=== PATIENT | female | born 1945 | race Caucasian/White ===

== ENCOUNTER 2022-11-20 13:01 | Emergency (ER) | payer MEDICARE, SELFPAY ==
[2022-11-20 13:07] VITALS: BP 134/78; PULSE 88; RESP 18; TEMP 36.2; O2SAT 93; BMI 41.6
--- NOTE | 2022-11-20 13:42 | ED.GENADULT ---
HPI - General Adult General Date Seen: 11/20/22 Chief complaint: Weakness Stated complaint: poss dehydration Time Seen by Provider: 11/20/22 13:02 Source: patient and family Mode of arrival: ambulatory Limitations: no limitations History of Present Illness HPI narrative: Patient is a 76-year-old woman here with her daughter for evaluation of ongoing nausea and dizziness. She was seen initially at [facility] ER at the beginning of October, but her daughter says they were very dissatisfied with her care here so they came here shortly thereafter. She had an evaluation at [facility] including labs, CT of the head and CT angiogram of the head which were unremarkable. Here she was noted to be orthostatic, and had recently been discontinued off of her prednisone so her symptoms were felt possibly related to abrupt withdrawal of steroids. She was treated with stress dose hydrocortisone and started back on prednisone. According to her hospital notes, she improved significantly, did still have weakness and cognitive problems and so was discharged [facility] where she stayed for a couple of weeks. She has been back at her daughter's house for the past week. Her daughter says she never really got much better, she still most of the time feels nauseated and dizzy. She talks a lot at home about not feeling well. She has not had any fainting, she saw the sheet metal roofer as well as her grinder outside diameter and primary care doctor in the past week. Her grinder outside diameter has her tapering off of prednisone at a very slow rate and she is down to 3.5 mg daily. Her sheet metal roofer recommended increasing her metoprolol from 100 mg daily to 150 mg daily although they have not instituted that yet as the medicine just became available at the pharmacy yesterday evening. She does have a history of atrial fibrillation but rate generally seems to be controlled. Daughter says the sheet metal roofer thought she might feel better on the higher dose of metoprolol nonetheless. She has not had any vomiting, she has colitis and just had a Remicade infusion a couple of days ago. She always has bloody stools and this is stable. She does not have significant abdominal pain and has not had fevers. Had a UA done at her primary clinic in the past week which was negative, denies urinary symptoms. Symptoms of dizziness are not clearly orthostatic, she says that she feels this way most of the time, even when she is sitting still. She has live with her daughter for the past 4 years, her daughter says that it has been going fine until the past month, and since then they have been having significant we more trouble. Her daughter says she does not drink a lot even the patient says she does, and daughter is concerned that she might be dehydrated. Related Data Home Medications Medication Instructions Recorded Confirmed allopurinol 300 mg tablet 450 mg PO DAILY 10/24/22 10/24/22 amlodipine 5 mg tablet 5 mg PO DAILY 10/24/22 10/24/22 apixaban 5 mg tablet (Eliquis) 5 mg PO BID 10/24/22 10/24/22 atorvastatin 10 mg tablet 10 mg PO DAILY 10/24/22 10/24/22 furosemide 20 mg tablet 20 mg PO DAILY 10/24/22 10/24/22 metoprolol tartrate 50 mg tablet 50 mg PO BID 10/24/22 10/24/22 (Lopressor) sulfasalazine 500 mg tablet 1 g PO Q12H 10/24/22 10/24/22 Previous Rx's Medication Instructions Recorded prednisone 20 mg tablet 20 mg PO DAILYWM 14 days #14 tabs 10/27/22 Allergies Allergy/AdvReac Type Severity Reaction Status Date / Time No Known Drug Allergies Allergy Verified 11/20/22 13:10 Review of Systems Status of ROS: Reports: 10 or more systems reviewed and unremarkable except as noted in History and below [facility] Medical History Health care directive on file ?Z78.9 - Other specified health status (ICD-10) Gout ?M10.9 - Gout, unspecified (ICD-10) Anxiety ?F41.9 - Anxiety disorder, unspecified (ICD-10) Physical deconditioning ?R53.81 - Other malaise (ICD-10) Obesity ?E66.9 - Obesity, unspecified (ICD-10) Hyperlipidemia ?E78.5 - Hyperlipidemia, unspecified (ICD-10) Atrial fibrillation ?I48.91 - Unspecified atrial fibrillation (ICD-10) Heart failure ?I50.9 - Heart failure, unspecified (ICD-10) Diabetes mellitus ?E11.9 - Type 2 diabetes mellitus without complications (ICD-10) Lower extremity edema ?R60.0 - Localized edema (ICD-10) Ulcerative colitis ?K51.90 - Ulcerative colitis, unspecified, without complications (ICD-10) Surgical History Hx of tonsillectomy ?Z90.89 - Acquired absence of other organs (ICD-10) H/O hernia repair ?Z98.890 - Other specified postprocedural states (ICD-10) ?Z87.19 - Personal history of other diseases of the digestive system (ICD-10) History of bilateral knee arthroplasty ?Z96.653 - Presence of artificial knee joint, bilateral (ICD-10) H/O abdominal hysterectomy ?Z90.710 - Acquired absence of both cervix and uterus (ICD-10) S/P colostomy takedown ?Z98.890 - Other specified postprocedural states (ICD-10) History of partial colectomy ?Z90.49 - Acquired absence of other specified parts of digestive tract (ICD-10) Social History Narrative: . She lives with her daughter. Her daughter's primary caregiver and sets up her medications for her. She normally walks with a walker. She tells me she still able to do this but is slower with more fatigue and weakness than a few days ago. She is a former smoker. She does not drink alcohol. She gets medical care through [facility] and [facility]. What is your current living situation?: I presently have a place to live Problems where you live: no known problems In the past 12 months, utilities in danger of being shut off: no In the past 12 mos, have been you worried that your food would run out before you had money to buy more?: never true In the past 12 mos, the food you bought just didn't last and you didn't have money to buy more?: never true Highest level of school completed/degree received: 11th grade Smoking Status: Former smoker Do you use any of these nicotine containing products: None Second hand tobacco smoke exposure: No How often do you have a drink containing alcohol: never How often do you have six or more drinks on one occasion: Never AUDIT-C Alcohol total score: 0 Non-prescribed substance use: denies use Caffeine: No How often does anyone, including family, friends and others, physically hurt you: never How often does anyone, including family, friends and others, insult or talk down to you: never How often does anyone, including family, friends and others, threaten you with harm: never How often does anyone, including family, friends and others, scream or curse at you: never service: No Exam Narrative: Exam Narrative: Vital signs as noted above. In general, an alert, nontoxic elderly woman. Head: Normocephalic, atraumatic. Eyes: Pupils are equal reactive. Extraocular movements are full. Conjunctivae are normal. ENT: Mucous membranes are moist. Throat is normal. Neck: Supple without lymphadenopathy. Heart: Regular rate and rhythm. No murmur or rub. Lungs: Clear bilaterally. No increased work of breathing, crackles or wheezes. Abdomen: Soft and nontender. No organomegaly. Extremities: Well perfused. No edema. No calf tenderness. Pulses intact. Neurologic: Patient is alert and oriented to person and place. Speech is fluent. Face is symmetric. Moves all extremities equally. Affect: Normal. Skin: Warm and dry. Well perfused. Const: Vital Signs, click to edit/add: Vital Signs - 24 hr 11/20/22 13:07 11/20/22 14:06 11/20/22 15:49 Temperature 97.1 F L Pulse Rate [Right Pulse Oximeter] 88 91 Pulse Rate [orthos tatic lying Left B rachial] 87 Pulse Rate [orthos tatic sitting Brac hial] 88 Pulse Rate [orthos tatic standing Lef t Brachial] 91 Respiratory Rate 18 18 Blood Pressure [Ri ght Upper Arm] 134/78 153/93 H Blood Pressure [or thostatic lying Le ft Radial Artery] 138/83 Blood Pressure [or thostatic sitting Left Radial Artery ] 148/83 H Blood Pressure [or thostatic standing Left Radial Arter y] 142/84 H Pulse Oximetry 93 97 Oxygen Delivery Me thod Room Air Room Air Documenting provider has reviewed patient's vital signs: yes Course Course Hospital Course: I have reviewed her records, she had a chest x-ray and CT the abdomen and pelvis on October 24. CT of the head was done at [facility] and was reportedly negative. Will go ahead and recheck labs today, but discussed with her daughter that I most likely will not have a solution to this problem. Labs are notable for mild elevations of LFTs with an ALT of 117 an AST of 73. Alk-phos is very minimally elevated at 163 but bilirubin is normal. She does not have abdominal pain suggestive of biliary colic or cholecystitis, but I did elect to do right upper quadrant ultrasound just to make sure that there was no evidence of more of a smoldering cholecystitis. Right upper quadrant ultrasound is pretty unremarkable. She has gallstones/sludge but wall thickness is normal and common bile duct is normal. She does not have any tenderness over the gallbladder, sonographic Martínez's is negative. She does have somewhat of a coarse hepatic echotexture, nonspecific. Her white blood cell count is normal at 6.6, hemoglobin 11.8. CRP was minimally elevated at 1.2 and sed rate was minimally elevated at 22. Her electrolytes were notable for a sodium of 129, potassium is normal. BUN and creatinine are normal. Lipase was 109. TSH was normal. Urinalysis today shows 5-10 white blood cells but moderate squames and I would recommend awaiting culture. Point of care troponin was 0. Her EKG shows atrial fibrillation which is chronic. Rate is controlled. She has fairly generous T-waves relative to her QRS complexes, but looking back at her previous EKG this does not appear to be a new finding. Given that she has had persistent symptoms for a month, troponin is negative I do not think her symptoms are likely related to cardiac ischemia. I talked with her daughter as well as the patient about options. After admission if she felt that at this time she would just need more care and we should pursue custodial placement. Patient had a Remicade injection a couple of days ago, she would like to wait a few days and see how she feels after that. Her daughter seems okay with that. Did discuss that she could also talk with primary care about getting more help in terms of home health. Return at any time for acute worsening, otherwise would recommend primary care follow-up in the next week or so for recheck of symptoms and consideration for recheck of her LFTs. Vital Signs Vital signs: Initial Vital Signs Temperature 97.1 F L 11/20/22 13:07 Temperature Source Temporal Artery Scan 11/20/22 13:07 Pulse Rate 88 11/20/22 13:07 Pulse Rhythm Regular 11/20/22 13:07 Pulse Strength 3+ Normal 11/20/22 13:07 Respiratory Rate 18 11/20/22 13:07 Blood Pressure 134/78 11/20/22 13:07 Blood Pressure Mean 96 11/20/22 13:07 Blood Pressure Position Supine 11/20/22 13:07 Pulse Oximetry 93 11/20/22 13:07 Oxygen Delivery Method Room Air 11/20/22 13:07 Vital Signs Temperature 97.1 F L 11/20/22 13:07 Pulse Rate 88 11/20/22 13:07 Respiratory Rate 18 11/20/22 13:07 Blood Pressure 134/78 11/20/22 13:07 Pulse Oximetry 93 11/20/22 13:07 Oxygen Delivery Method Room Air 11/20/22 13:07 Temperature 97.1 F L 11/20/22 13:07 Pulse Rate 91 11/20/22 15:49 Respiratory Rate 18 11/20/22 15:49 Blood Pressure 153/93 H 11/20/22 15:49 Pulse Oximetry 97 11/20/22 15:49 Oxygen Delivery Method Room Air 11/20/22 15:49 Medical Decision Making Lab Data Labs: Lab Results 11/20/22 11/20/22 Range/Units 13:20 13:39 WBC 6.60 (4.50-11.00) K/uL RBC 4.62 (4.00-5.20) m/uL Hgb 11.8 L (12.0-16.0) gm/dL Hct 39.1 (33.0-51.0) % MCV 85 (80-100) fL MCH 26 (26-34) pg MCHC 30 L (32-36) gm/dL RDW Coeff of Jessica 17.8 H (11.5-15.5) % Plt Count 260 (140-440) K/uL Neut % (Auto) 56.7 (42.0-72.0) % Lymph % (Auto) 36.5 (20-44) % [place] % (Auto) 5.5 (0.0-11.0) % Eos % (Auto) 0.5 (0.0-7.0) % Baso % (Auto) 0.3 (0.0-3.0) % Neut # (Auto) 3.75 (1.7-7.0) K/uL Lymph # (Auto) 2.41 (0.90-2.90) K/uL [place] # (Auto) 0.40 (0.00-0.90) K/UL Eos # (Auto) 0.03 (0.00-0.50) K/uL Baso # (Auto) 0.02 (0.00-0.30) K/uL ESR 22 H (2-20) mm/hr Sodium 129 L (135-149) mmol/L Potassium 3.9 (3.6-5.1) mmol/L Chloride 90 L (96-114) mmol/L Carbon Dioxide 34 H (20-32) mmol/L BUN 26 (7-30) mg/dL Creatinine 0.9 (0.5-1.5) mg/dL Estimated Creat Clear 44.41 Estimated GFR 67 ml/min Glucose 245 H (60-115) mg/dL Hemoglobin A1c 6.93 H (0-5.6) % Lactate 2.0 H (0.5-1.9) mmol/L Calcium 8.7 (8.4-10.6) mg/dL Total Bilirubin 0.3 (0.1-1.5) mg/dL Direct Bilirubin (0.0-0.5) mg/dL AST 73 H (12-35) U/L ALT 117 H (4-35) U/L Alkaline Phosphatase 163 H (40-150) U/L C-Reactive Protein 1.2 H (0.5-1.0) mg/dL Total Protein 7.2 (6.0-8.3) g/dL Albumin 2.0 L (3.3-5.0) g/dL Lipase 109 (23-300) U/L TSH 2.030 (0.270-4.200) uIU/mL Urine Color Yellow (Yellow) Urine Appearance Clear (Clear) Urine pH 6.5 (5.0-8.5) Ur Specific [place] 1.010 (1.000-1.030) Urine Protein Negative (Negative) Urine Glucose (UA) Negative (Negative) Urine Ketones Negative (Negative) Urine Blood Trace-intact A (Negative) Urine Nitrite Negative (Negative) Urine Bilirubin Negative (Negative) Urine Urobilinogen 0.2 (0.2-1.0) Ur Leukocyte Esterase 3+ A (Negative) Urine RBC 0-2 (0-2) Urine WBC 5-10 A (0-5) Ur Squamous Epith Cells Moderate A (None-Few) Urine Bacteria Few A (None) POC Troponin I 0.00 L (0.01-0.04) ng/ml Discharge Plan Discharge Clinical Impression: Nausea Patient Disposition: Home w/ Parent or Adult Condition: Improved Instructions: Weakness (ED) Additional Instructions: Use Zofran if needed for nausea. Primary care follow-up for recheck in the next week. Return at any time for acute changes such as significant abdominal pain, fevers, vomiting despite medication, fainting or other significant changes. Prescriptions: No Action atorvastatin 10 mg tablet 10 mg PO DAILY allopurinol 300 mg tablet 450 mg PO DAILY furosemide 20 mg tablet 20 mg PO DAILY Eliquis 5 mg tablet 5 mg PO BID sulfasalazine 500 mg tablet 1 g PO Q12H Rx Instructions: give with food (meal/snack) metoprolol tartrate [Lopressor] 50 mg tablet 50 mg PO BID amlodipine 5 mg tablet 5 mg PO DAILY prednisone 20 mg Tablet 20 mg PO DAILYWM 14 Days Qty: 14 1RF Rx Instructions: Stress dosing needed in case of crisis. Follow Up/Referrals: Provider,Not a Local [Primary Care Provider] - Stand Alone Forms: [employer]th Info Instructions
[2022-11-20 13:52] LABS: Basophils Absolute Auto 0.02 K/uL (0.00-0.30); Basophils Percent Auto 0.3 % (0.0-3.0); Eosinophils Absolute Auto 0.03 K/uL (0.00-0.50); Eosinophils Percent Auto 0.5 % (0.0-7.0); Hematocrit 39.1 % (33.0-51.0); Hemoglobin* 11.8 gm/dL (12.0-16.0); Immature Granulocytes Abs Auto 0.03 K/uL (0.00-0.30); Immature Granulocytes Pct Auto 0.5 %; Lymphocytes Absolute Auto 2.41 K/uL (0.90-2.90); Lymphocytes Percent Auto 36.5 % (20-44); Mean Corpuscular HGB Conc 30 gm/dL (32-36); Mean Corpuscular Hemoglobin 26 pg (26-34); Mean Corpuscular Volume 85 fL (80-100); Monocytes Percent Auto 5.5 % (0.0-11.0); Neutrophils Absolute Auto 3.75 K/uL (1.7-7.0); Neutrophils Percent Auto 56.7 % (42.0-72.0); Platelet Count* 260 K/uL (140-440); RDW Coefficient of Variation % 17.8 % (11.5-15.5); Red Blood Count 4.62 m/uL (4.00-5.20)
[2022-11-20 13:54] LABS: Slide Review Reflex No
[2022-11-20] MEDS: 0.9 % SODIUM CHLORIDE 500 ML 500 ML IV (13:54)
[2022-11-20] MEDS: ONDANSETRON 2 MG/ML inj 4 MG IVP (13:54)
[2022-11-20 13:55] LABS: Appearance Urine Clear (Clear); Bilirubin Urine Negative (Negative); Blood Urine Trace-intact (Negative); Color Urine Yellow (Yellow); Glucose Urine Negative (Negative); Ketones Urine Negative (Negative); Leukocyte Esterase Urine 3+ (Negative); Nitrite Urine Negative (Negative); Protein Urine Negative (Negative); Urobilinogen Urine 0.2 (0.2-1.0); pH Urine 6.5 (5.0-8.5)
[2022-11-20 14:05] LABS: Chloride* 90 mmol/L (96-114)
[2022-11-20 14:06] VITALS: BP 138/83; BP 142/84; BP 148/83; PULSE 87; PULSE 88; PULSE 91
[2022-11-20 14:06] LABS: Potassium* 3.9 mmol/L (3.6-5.1); Sodium* 129 mmol/L (135-149)
[2022-11-20 14:08] LABS: Creatinine* 0.9 mg/dL (0.5-1.5); Est. Creatinine Clearance* 44.41; Estimated Glomerular Filt Rate 67 ml/min
[2022-11-20 14:09] LABS: Alanine Aminotransferase* 117 U/L (4-35); Alkaline Phosphatase* 163 U/L (40-150); Aspartate Amino Transferase* 73 U/L (12-35); Bilirubin Total* 0.3 mg/dL (0.1-1.5); Blood Urea Nitrogen* 26 mg/dL (7-30); Calcium* 8.7 mg/dL (8.4-10.6); Carbon Dioxide* 34 mmol/L (20-32); Glucose* 245 mg/dL (60-115); Lipase* 109 U/L (23-300); Total Protein* 7.2 g/dL (6.0-8.3)
[2022-11-20 14:11] LABS: Bacteria Urine Few; RBC Urine 0-2 (0-2); Squamous Epithelial Cell Urine Moderate (None-Few)
[2022-11-20 14:12] LABS: C Reactive Protein* 1.2 mg/dL (0.5-1.0)
[2022-11-20 14:37] LABS: Erythrocyte SedimentationRate* 22 mm/hr (2-20)
--- NOTE | 2022-11-20 15:39 | CRLHL7_ITS ---
For Patients: As a result of the Cures Act, medical imaging exams and procedure reports are released immediately into your electronic medical record. You may view this report before your referring provider. If you have questions, please contact your health care provider. INDICATION: Nausea. Elevated liver function tests. TECHNIQUE: Right upper quadrant ultrasound. COMPARISON : Correlation is made with an abdominal pelvic CT October 24, 2022. FINDINGS: Contracted gallbladder likely due to a nonfasting state. There is minimal sludge/sand like stones in the gallbladder. The gallbladder wall measures 2 mm. The common bile duct 4 mm. No pericholecystic fluid. No sonographic Martínez`s sign. Coarsened hepatic echotexture. This may reflect an intrinsic hepatic parenchymal disease. Tiny echogenic focus right hepatic lobe may reflect a tiny hemangioma. The visualized portions of the pancreas are unremarkable. The right kidney is negative for obstruction. It measures 11.3 x 5.2 x 5.6 cm. The visualized proximal aorta and proximal IVC are unremarkable. IMPRESSION: 1. Cholelithiasis without acute cholecystitis. 2. Coarsened hepatic echotexture. This is nonspecific but may reflect an intrinsic hepatic parenchymal process. 3. Tiny echogenic focus right hepatic lobe likely a tiny cavernous hemangioma. Dictated by Hood Ogden MD @ 11/20/2022 5:48:03 PM (Electronically Signed)
[2022-11-20 15:49] VITALS: BP 153/93; PULSE 91; RESP 18; O2SAT 97
[2022-11-20 15:58] LABS: Hemoglobin A1C* 6.93 % (0-5.6)
== END 2022-11-20 17:18 | disposition home or self-care (01) ==
PROVIDERS: Emergency Provider Emergency Medicine
DX: R11.0 Nausea (principal)
CPT/HCPCS: 36415; 76705; 80048; 80076; 81001; 83036; 83605; 83690; 84443; 84484; 85025; 85651; 86140; 87086; 87186; 93005; 96374; 99284; J2405; J7120

== ENCOUNTER 2023-08-12 12:33 | Emergency (ER) | payer MEDICARE, SELFPAY ==
[2023-08-12 12:42] VITALS: BP 128/72; PULSE 85; RESP 20; TEMP 36.6; O2SAT 97; BMI 44.4
--- NOTE | 2023-08-12 12:55 | XR_ITS ---
Patient: YANETH ANTHONY Facility:?[facility] Patient ID:?[id number] Site Patient ID:?[id number]. Site :?[id number] Study:?XRay-Chest 2 VIEW-08/12/2023 2:12:50 PM Ordering Physician:?DR. HERRERA Final Report: INDICATION: COUGH TECHNIQUE: Chest 2 views. COMPARISON: None. IMPRESSION: Cardiovascular and mediastinum: Marked cardiomegaly. Lungs and pleural spaces: Patchy right basilar opacity may represent atelectasis or developing consolidation/pneumonia. No sign of pleural effusion. No pneumothorax. Bones and soft tissues: No significant findings. Dictated by Ivan Lee MD @ 08/12/2023 2:25:06 PM Signed by:?Ivan Lee MD @08/12/2023 2:25:06 PM (Electronic Signature)
--- NOTE | 2023-08-12 12:58 | ED.GENADULT ---
HPI - General Adult General Date Seen: 08/12/23 Chief complaint: Shortness of Breath/Dyspnea Stated complaint: Fluid in lungs Time Seen by Provider: 08/12/23 12:35 Source: patient and family Mode of arrival: ambulatory Limitations: no limitations History of Present Illness HPI narrative: Patient is a 77-year-old woman here with her daughter. Daughter provides essentially all the history. Apparently she was at [facility] today for an infusion related to her chronic colitis, but they said her lungs were ?too crackly and they did not do the infusion. Her daughter says she has had a cough for a couple of weeks now, has had some dyspnea on exertion. No chest pain, fevers. She has nebs and inhalers at home but does not like to use them because she says they make her cough more. She does have a history of heart failure according to the daughter, she is on Lasix, daughter says she is on 2 other water pills although I do not see those on her list. Daughter says she feels like she is getting more forgetful and sometimes forgets to take her medications. She does live with her daughter. She does not keep track of her weight, has not noted increased swelling in her legs. Daughter is worried about fluid on her lungs. Patient says she feels like she has a cold. Related Data Home Medications Medication Instructions Recorded Confirmed allopurinol 300 mg tablet 450 mg PO DAILY 10/24/22 10/24/22 amlodipine 5 mg tablet 5 mg PO DAILY 10/24/22 10/24/22 apixaban 5 mg tablet (Eliquis) 5 mg PO BID 10/24/22 10/24/22 atorvastatin 10 mg tablet 10 mg PO DAILY 10/24/22 10/24/22 furosemide 20 mg tablet 20 mg PO DAILY 10/24/22 10/24/22 metoprolol tartrate 50 mg tablet 50 mg PO BID 10/24/22 10/24/22 (Lopressor) sulfasalazine 500 mg tablet 1 g PO Q12H 10/24/22 10/24/22 Previous Rx's Medication Instructions Recorded prednisone 20 mg tablet 20 mg PO DAILYWM 14 days #14 tabs 10/27/22 Allergies Allergy/AdvReac Type Severity Reaction Status Date / Time No Known Drug Allergies Allergy Verified 11/20/22 13:10 Review of Systems Status of ROS: Reports: 6 or more systems reviewed and unremarkable except as noted in History and below [facility] Medical History Health care directive on file ?Z78.9 - Other specified health status (ICD-10) Gout ?M10.9 - Gout, unspecified (ICD-10) Anxiety ?F41.9 - Anxiety disorder, unspecified (ICD-10) Physical deconditioning ?R53.81 - Other malaise (ICD-10) Obesity ?E66.9 - Obesity, unspecified (ICD-10) Hyperlipidemia ?E78.5 - Hyperlipidemia, unspecified (ICD-10) Atrial fibrillation ?I48.91 - Unspecified atrial fibrillation (ICD-10) Heart failure ?I50.9 - Heart failure, unspecified (ICD-10) Diabetes mellitus ?E11.9 - Type 2 diabetes mellitus without complications (ICD-10) Lower extremity edema ?R60.0 - Localized edema (ICD-10) Ulcerative colitis ?K51.90 - Ulcerative colitis, unspecified, without complications (ICD-10) Surgical History Hx of tonsillectomy ?Z90.89 - Acquired absence of other organs (ICD-10) H/O hernia repair ?Z98.890 - Other specified postprocedural states (ICD-10) ?Z87.19 - Personal history of other diseases of the digestive system (ICD-10) History of bilateral knee arthroplasty ?Z96.653 - Presence of artificial knee joint, bilateral (ICD-10) H/O abdominal hysterectomy ?Z90.710 - Acquired absence of both cervix and uterus (ICD-10) S/P colostomy takedown ?Z98.890 - Other specified postprocedural states (ICD-10) History of partial colectomy ?Z90.49 - Acquired absence of other specified parts of digestive tract (ICD-10) Social History Narrative: . She lives with her daughter. Her daughter's primary caregiver and sets up her medications for her. She normally walks with a walker. She tells me she still able to do this but is slower with more fatigue and weakness than a few days ago. She is a former smoker. She does not drink alcohol. She gets medical care through [facility] and [facility]. What is your current living situation?: I presently have a place to live Problems where you live: no known problems In the past 12 months, utilities in danger of being shut off: no In past 12 months, lack of transportation kept you from medical appts, meetings, work, or getting things needed for daily living: no In the past 12 mos, have been you worried that your food would run out before you had money to buy more?: never true In the past 12 mos, the food you bought just didn't last and you didn't have money to buy more?: never true Highest level of school completed/degree received: 11th grade Smoking Status: Former smoker Do you use any of these nicotine containing products: None Second hand tobacco smoke exposure: No How often do you have a drink containing alcohol: never How often do you have six or more drinks on one occasion: Never AUDIT-C Alcohol total score: 0 Non-prescribed substance use: denies use Caffeine: No How often does anyone, including family, friends and others, physically hurt you: never How often does anyone, including family, friends and others, insult or talk down to you: never How often does anyone, including family, friends and others, threaten you with harm: never How often does anyone, including family, friends and others, scream or curse at you: never service: No Exam Narrative: Exam Narrative: Vital signs as noted above. In general, an alert, well-appearing patient. Breathing easily. She is overweight. She walks with a cane. Head: Normocephalic, atraumatic. Eyes: Pupils are equal reactive. Extraocular movements are full. Conjunctivae are normal. ENT: Mucous membranes are moist. Neck: Supple without lymphadenopathy. Heart: Regular rate and rhythm. Lungs: Diffuse wheezes, scattered rhonchi. No fine crackles. Abdomen: Soft and nontender. No organomegaly. Extremities: Well perfused. No significant lower extremity edema. No calf tenderness. Radial pulses intact. Neurologic: Patient is alert and oriented to person and place. Speech is fluent. Face is symmetric. Moves all extremities equally. Affect: Normal. Skin: Warm and dry. Well perfused. Const: Vital Signs, click to edit/add: Vital Signs - 24 hr 08/12/23 12:42 Temperature 97.9 F Pulse Rate [Pulse Oximeter] 85 Respiratory Rate 20 Blood Pressure [Ri ght Upper Arm] 128/72 Pulse Oximetry 97 Oxygen Delivery Me thod Room Air Documenting provider has reviewed patient's vital signs: yes Course Course ED Course: Patient presents with a couple of weeks of cough, some dyspnea on exertion, afebrile, normal O2 sats. Exam is more suggestive of bronchospasm than pulmonary edema, but will check some labs, x-ray, she is willing to do a neb here so will see if that improves her lung exam. She has a history of atrial fibrillation, she is chronically anticoagulated on Eliquis. No other known heart disease, we do not have an echo in our system and daughter is unaware of previous echo. Chest x-ray by my review shows significant cardiomegaly, I do not see obvious consolidation or significant pulmonary edema. Labs show a white blood cell count of 11.4, hemoglobin of 13.1, normal platelets. No significant left shift. D-dimer was elevated 1.4. Metabolic panel was normal aside from a mildly elevated BUN of 38, creatinine was 1. Blood sugar elevated at 295, she does have a history of diabetes. Point of care troponin was 0.01. Urinalysis was done at daughter's request because she feels like her mom's memory is not been is good she want to rule out urinary tract infection. No urinary symptoms. 0-2 red cells, 0-2 white cells, many squames. COVID, influenza and RSV are negative. CT scan was done given the elevated D-dimer and perceived increased shortness of breath with exertion. By my review, there is no evidence of pulmonary embolism, I do not see consolidation, final radiology read as follows: Findings: The thoracic inlet and thyroid gland are unremarkable. The thoracic aorta is nonaneurysmal. There is no central filling defect to suggest pulmonary embolism. There is no mediastinal, hilar or axillary adenopathy. There is mild central bronchial thickening. There is minimal basilar atelectasis and parenchymal scar with mild biapical pleural thickening. There is no dense consolidation, effusion or pneumothorax. There is no evidence of pulmonary mass or suspicious pulmonary nodule. The partially visualized upper abdominal viscera are within normal limits. The thoracic vertebral body heights are grossly maintained with minimal endplate Schmorl`s defects. There is no significant spondylolisthesis or displaced fracture. Impression: Mild central bronchial thickening without dense consolidation. No evidence of pulmonary embolus. She feels improved after DuoNeb here, she says she is willing to use her nebs at home if that is what I say she should do. She is on chronic prednisone 10 mg daily, will have her increase that to 40 daily for 5 days and then drop back down. She should use her prescribed nebs every 4 hours as needed. For worsening shortness of breath, fevers, chest pain or other significant changes return at any time for re-evaluation. Otherwise, recheck with primary care next week if not improving. Vital Signs Vital signs: Initial Vital Signs Temperature 97.9 F 08/12/23 12:42 Temperature Source Temporal Artery Scan 08/12/23 12:42 Pulse Rate 85 08/12/23 12:42 Respiratory Rate 20 08/12/23 12:42 Blood Pressure 128/72 08/12/23 12:42 Blood Pressure Mean 90 08/12/23 12:42 Pulse Oximetry 97 08/12/23 12:42 Oxygen Delivery Method Room Air 08/12/23 12:42 Vital Signs Temperature 97.9 F 08/12/23 12:42 Pulse Rate 85 08/12/23 12:42 Respiratory Rate 20 08/12/23 12:42 Blood Pressure 128/72 08/12/23 12:42 Pulse Oximetry 97 08/12/23 12:42 Oxygen Delivery Method Room Air 08/12/23 12:42 Temperature 97.9 F 08/12/23 12:42 Pulse Rate 85 08/12/23 12:42 Respiratory Rate 20 08/12/23 12:42 Blood Pressure 128/72 08/12/23 12:42 Pulse Oximetry 97 08/12/23 12:42 Oxygen Delivery Method Room Air 08/12/23 12:42 Medical Decision Making Lab Data Labs: Lab Results 08/12/23 08/12/23 08/12/23 Range/Units 12:57 13:17 14:32 WBC 11.38 H (4.50-11.00) K/uL RBC 4.59 (4.00-5.20) m/uL Hgb 13.1 (12.0-16.0) gm/dL Hct 42.8 (33.0-51.0) % MCV 93 (80-100) fL MCH 29 (26-34) pg MCHC 31 L (32-36) gm/dL RDW Coeff of Jessica 15.6 H (11.5-15.5) % Plt Count 219 (140-440) K/uL Neut % (Auto) 62.8 (42.0-72.0) % Lymph % (Auto) 31.2 (20-44) % [place] % (Auto) 4.3 (0.0-11.0) % Eos % (Auto) 0.5 (0.0-7.0) % Baso % (Auto) 0.4 (0.0-3.0) % Neut # (Auto) 7.10 H (1.7-7.0) K/uL Lymph # (Auto) 3.60 H (0.90-2.90) K/uL [place] # (Auto) 0.50 (0.00-0.90) K/UL Eos # (Auto) 0.10 (0.00-0.50) K/uL Baso # (Auto) 0.00 (0.00-0.30) K/uL Abs Immat Gran (auto) 0.10 (0.00-0.30) K/uL Imm/Tot Granulo (auto) 0.8 % D-Dimer Quant (PE/DVT) 1.41 H (0.00-0.50) ug/ml Sodium 135 (135-149) mmol/L Potassium 4.0 (3.6-5.1) mmol/L Chloride 96 (96-114) mmol/L Carbon Dioxide 32 (20-32) mmol/L Anion Gap 7 (7-15) mEq/L BUN 38 H (7-30) mg/dL Creatinine 1.0 (0.5-1.5) mg/dL Estimated Creat Clear 38.44 Estimated GFR 59 ml/min Glucose 295 H (60-115) mg/dL Calcium 8.7 (8.4-10.6) mg/dL C-Reactive Protein 0.8 (0.5-1.0) mg/dL NT-Pro-B Natriuret Pep 1450 pg/mL Urine Color Yellow (Yellow) Urine Appearance Clear (Clear) Urine pH 6.0 (5.0-8.5) Ur Specific [place] 1.015 (1.000-1.030) Urine Protein Negative (Negative) Urine Glucose (UA) Negative (Negative) Urine Ketones Negative (Negative) Urine Blood Trace-intact A (Negative) Urine Nitrite Negative (Negative) Urine Bilirubin Negative (Negative) Urine Urobilinogen 0.2 (0.2-1.0) Ur Leukocyte Esterase Negative (Negative) Urine RBC 0-2 (0-2) Urine WBC 0-2 (0-5) Ur Squamous Epith Cells Many A (None-Few) Urine Bacteria None (None) SARS-CoV-2 (PCR) Negative SARS-CoV-2 (Negative) Influenza Type A (PCR) Negative PCR FLU A (Negative) Influenza Type B (PCR) Negative PCR FLU B (Negative) RSV (PCR) Negative PCR RSV (Negative) POC Troponin I 0.01 (0.01-0.04) ng/ml Discharge Plan Discharge Clinical Impression: Bronchitis Patient Disposition: Home w/ Parent or Adult Condition: Improved Instructions: Acute Bronchitis (ED) Additional Instructions: Would recommend you increase prednisone to 40 mg daily for 5 days, you can then return to your 10 mg daily dose. Use your nebulizer as needed for wheezing, shortness of breath, cough, every 4 hours as needed. For worsening shortness of breath, new symptoms such as leg swelling, chest pain, fevers, return any time to the ER. Prescriptions: No Action atorvastatin 10 mg tablet 10 mg PO DAILY allopurinol 300 mg tablet 450 mg PO DAILY furosemide 20 mg tablet 20 mg PO DAILY Eliquis 5 mg tablet 5 mg PO BID sulfasalazine 500 mg tablet 1 g PO Q12H Rx Instructions: give with food (meal/snack) metoprolol tartrate [Lopressor] 50 mg tablet 50 mg PO BID amlodipine 5 mg tablet 5 mg PO DAILY prednisone 20 mg Tablet 20 mg PO DAILYWM 14 Days Qty: 14 1RF Rx Instructions: Stress dosing needed in case of crisis. Follow Up/Referrals: Provider,Not a Local [Referring] - Stand Alone Forms: [employer] Info Instructions
[2023-08-12] MEDS: IPRAT-ALBUT 0.5-2.5 MG/3 ML NEB 1 NEB IH (13:00)
[2023-08-12 13:25] LABS: Basophils Percent Auto 0.4 % (0.0-3.0); Eosinophils Percent Auto 0.5 % (0.0-7.0); Hematocrit 42.8 % (33.0-51.0); Hemoglobin* 13.1 gm/dL (12.0-16.0); Immature Granulocytes Pct Auto 0.8 %; Lymphocytes Percent Auto 31.2 % (20-44); Mean Corpuscular HGB Conc 31 gm/dL (32-36); Mean Corpuscular Hemoglobin 29 pg (26-34); Mean Corpuscular Volume 93 fL (80-100); Monocytes Percent Auto 4.3 % (0.0-11.0); Neutrophils Percent Auto 62.8 % (42.0-72.0); Platelet Count* 219 K/uL (140-440); RDW Coefficient of Variation % 15.6 % (11.5-15.5); Red Blood Count 4.59 m/uL (4.00-5.20); White Blood Count* 11.38 K/uL (4.50-11.00)
[2023-08-12 13:29] LABS: Slide Review Reflex No
[2023-08-12 13:30] LABS: Troponin, Point-of-Care* 0.01 ng/ml (0.01-0.04)
[2023-08-12 13:45] LABS: Chloride* 96 mmol/L (96-114); Sodium* 135 mmol/L (135-149)
[2023-08-12 13:48] LABS: Est. Creatinine Clearance* 38.44; Estimated Glomerular Filt Rate 59 ml/min
[2023-08-12 13:49] LABS: Anion Gap 7 mEq/L (7-15); Blood Urea Nitrogen* 38 mg/dL (7-30); Calcium* 8.7 mg/dL (8.4-10.6); Carbon Dioxide* 32 mmol/L (20-32); Glucose* 295 mg/dL (60-115)
[2023-08-12 13:51] LABS: D Dimer Quantitative* 1.41 ug/ml (0.00-0.50)
[2023-08-12 13:52] LABS: C Reactive Protein* 0.8 mg/dL (0.5-1.0)
[2023-08-12 13:59] LABS: NT Pro B Type NatriureticPept* 1450 pg/mL
[2023-08-12 14:12] LABS: PCR FLU A Negative PCR FLU A (Negative); PCR FLU B Negative PCR FLU B (Negative); PCR RSV Negative PCR RSV (Negative); SARS PCR* Negative SARS-CoV-2 (Negative)
--- NOTE | 2023-08-12 14:16 | CT_ITS ---
Patient: YANETH ANTHONY Facility:?[facility] Patient ID:?[id number] Site Patient ID:?[id number]. Site :?[id number] Study:?CT-Chest PE 95CC ISOVUE 370-08/12/2023 3:00:13 PM Ordering Physician:POPEYE Final Report: Indication: Shortness of breath, elevated D-dimer Technique: Volumetric multidetector CT images of the chest were obtained after the administration of IV contrast. 95 cc Isovue 370 low osmolar intravenous contrast Comparison: None available. Findings: The thoracic inlet and thyroid gland are unremarkable. The thoracic aorta is nonaneurysmal. There is no central filling defect to suggest pulmonary embolism. There is no mediastinal, hilar or axillary adenopathy. There is mild central bronchial thickening. There is minimal basilar atelectasis and parenchymal scar with mild biapical pleural thickening. There is no dense consolidation, effusion or pneumothorax. There is no evidence of pulmonary mass or suspicious pulmonary nodule. The partially visualized upper abdominal viscera are within normal limits. The thoracic vertebral body heights are grossly maintained with minimal endplate Schmorl`s defects. There is no significant spondylolisthesis or displaced fracture. Impression: Mild central bronchial thickening without dense consolidation. No evidence of pulmonary embolus. Please note that all CT scans at this facility use dose modulation, iterative reconstruction, and/or weight-based dosing when appropriate to reduce radiation dose to as low as reasonably achievable. Dictated by Hermes Carpio MD @ 08/12/2023 3:23:57 PM Signed by:?Hermes Carpio MD @08/12/2023 3:23:57 PM (Electronic Signature)
[2023-08-12 14:42] LABS: Appearance Urine Clear (Clear); Bilirubin Urine Negative (Negative); Blood Urine Trace-intact (Negative); Color Urine Yellow (Yellow); Glucose Urine Negative (Negative); Ketones Urine Negative (Negative); Leukocyte Esterase Urine Negative (Negative); Nitrite Urine Negative (Negative); Protein Urine Negative (Negative); Specific Gravity Urine 1.015 (1.000-1.030); Urobilinogen Urine 0.2 (0.2-1.0)
[2023-08-12 14:51] LABS: RBC Urine 0-2 (0-2); WBC Urine 0-2 (0-5)
[2023-08-12 14:52] LABS: Squamous Epithelial Cell Urine Many (None-Few)
== END 2023-08-12 16:08 | disposition home or self-care (01) ==
PROVIDERS: Emergency Provider Emergency Medicine; PCP Family Medicine
DX: J40 Bronchitis, not specified as acute or chronic (principal)
CPT/HCPCS: 36415; 71046; 71275; 80048; 81001; 83880; 84484; 85025; 85379; 86140; 87631; 93005; 94640; 99284; 99285; Q9967

== ENCOUNTER 2023-08-19 09:47 | Emergency (ER) | payer MEDICARE, SELFPAY ==
[2023-08-19] VITALS (25 sets, daily range): BP systolic 109–144; BP diastolic 61–125; PULSE 86–110; RESP 20; TEMP 36.7; O2SAT 68–97; BMI 49.1
--- NOTE | 2023-08-19 10:31 | XR_ITS ---
Patient: YANETH ANTHONY Facility:?[facility] Patient ID:?[id number] Site Patient ID:?[id number]. Site :?[id number] Study:?XRay-Chest PORTABLE 1V-08/19/2023 10:58:28 AM Ordering Physician:PEDRO Final Report: INDICATION: Cough. COMPARISON: Chest radiographs dated 08/12/2023 and 10/24/2022. Chest CT 08/12/2023 TECHNIQUE: 1 view. FINDINGS: Medical Devices: None. Lung Volumes: Adequate inspiration. No significant atelectasis. Lungs: Mild upper lobe pulmonary vascular diversion consistent with congestive heart failure in the correct clinical setting. Otherwise clear lungs. Pleura and Pleural spaces: No significant pleural effusion. No pneumothorax. Mediastinum: Unremarkable for AP technique, unchanged. Bony Thorax and Soft Tissues: No significant incidental findings. IMPRESSION: Mild upper lobe pulmonary vascular diversion consistent with congestive heart failure in the correct clinical setting. Otherwise clear lungs. Dictated by Benjamin Howard MD @ 08/19/2023 11:08:44 AM Signed by:?Benjamin Howard MD @08/19/2023 11:08:44 AM (Electronic Signature)
--- NOTE | 2023-08-19 10:37 | ED_ITS ---
HPI - General Adult General Chief complaint: Nausea/Vomiting Stated complaint: vomiting / diarrhea Time Seen by Provider: 08/19/23 10:18 Source: patient Mode of arrival: ambulatory Limitations: no limitations History of Present Illness HPI narrative: 77-year-old female coming in today at the request of her daughter, who she lives with and is her phd intern, with concerns of cough, weakness and confusion. Patient's daughter states that in the last month and a half patient has been slowly declining with increasing confusion, decreasing mobility. Patient does ambulate with a walker but she has been shuffling more and has been more difficult for her to get in out of bed. She has been more confused, forgetting things like taking her medications. In the last 2 days she has also been vomiting multiple times per day. She continues to have 1 daily bowel movement, no diarrhea. No fevers. Patient's daughter is quite concerned that she is unable to take care of her at this time given that she is requiring more and more care. She is requesting help with placement. Past medical history significant for ulcerative colitis, cognitive impairment, atrial fibrillation on anticoagulation therapy, congestive heart failure, obesity, anxiety, hyperlipidemia, diabetes, lower extremity edema. And she has been living with her daughter for the last 5 years. Related Data Home Medications Medication Instructions Recorded Confirmed allopurinol 300 mg tablet 450 mg PO DAILY 10/24/22 08/19/23 amlodipine 5 mg tablet 5 mg PO DAILY 10/24/22 08/19/23 apixaban 5 mg tablet (Eliquis) 5 mg PO BID 10/24/22 08/19/23 atorvastatin 10 mg tablet 10 mg PO DAILY 10/24/22 08/19/23 furosemide 20 mg tablet 20 mg PO DAILY 10/24/22 08/19/23 metoprolol tartrate 50 mg tablet 50 mg PO BID 10/24/22 08/19/23 (Lopressor) sulfasalazine 500 mg tablet 1 g PO Q12H 10/24/22 08/19/23 Vitamin D3 08/19/23 escitalopram oxalate 5 mg tablet 5 mg PO DAILY anxiety 08/19/23 08/19/23 ondansetron 4 mg disintegrating mg PO 08/19/23 tablet Previous Rx's Medication Instructions Recorded prednisone 20 mg tablet 20 mg PO DAILYWM 14 days #14 tabs 10/27/22 Allergies Allergy/AdvReac Type Severity Reaction Status Date / Time No Known Drug Allergies Allergy Verified 11/20/22 13:10 Review of Systems Status of ROS: Reports: 10 or more systems reviewed and unremarkable except as noted in History and below [facility] Medical History Health care directive on file ?Z78.9 - Other specified health status (ICD-10) Gout ?M10.9 - Gout, unspecified (ICD-10) Anxiety ?F41.9 - Anxiety disorder, unspecified (ICD-10) Physical deconditioning ?R53.81 - Other malaise (ICD-10) Obesity ?E66.9 - Obesity, unspecified (ICD-10) Hyperlipidemia ?E78.5 - Hyperlipidemia, unspecified (ICD-10) Atrial fibrillation ?I48.91 - Unspecified atrial fibrillation (ICD-10) Heart failure ?I50.9 - Heart failure, unspecified (ICD-10) Diabetes mellitus ?E11.9 - Type 2 diabetes mellitus without complications (ICD-10) Lower extremity edema ?R60.0 - Localized edema (ICD-10) Ulcerative colitis ?K51.90 - Ulcerative colitis, unspecified, without complications (ICD-10) Surgical History Hx of tonsillectomy ?Z90.89 - Acquired absence of other organs (ICD-10) H/O hernia repair ?Z98.890 - Other specified postprocedural states (ICD-10) ?Z87.19 - Personal history of other diseases of the digestive system (ICD-10) History of bilateral knee arthroplasty ?Z96.653 - Presence of artificial knee joint, bilateral (ICD-10) H/O abdominal hysterectomy ?Z90.710 - Acquired absence of both cervix and uterus (ICD-10) S/P colostomy takedown ?Z98.890 - Other specified postprocedural states (ICD-10) History of partial colectomy ?Z90.49 - Acquired absence of other specified parts of digestive tract (ICD- 10) Social History Narrative: . She lives with her daughter. Her daughter's primary caregiver and sets up her medications for her. She normally walks with a walker. She tells me she still able to do this but is slower with more fatigue and weakness than a few days ago. She is a former smoker. She does not drink alcohol. She gets medical care through [facility] and [facility]. What is your current living situation?: I presently have a place to live Problems where you live: no known problems In the past 12 months, utilities in danger of being shut off: no In past 12 months, lack of transportation kept you from medical appts, meetings, work, or getting things needed for daily living: no In the past 12 mos, have been you worried that your food would run out before you had money to buy more?: never true In the past 12 mos, the food you bought just didn't last and you didn't have money to buy more?: never true Highest level of school completed/degree received: 11th grade Smoking Status: Former smoker Do you use any of these nicotine containing products: None Second hand tobacco smoke exposure: No How often do you have a drink containing alcohol: never How often do you have six or more drinks on one occasion: Never AUDIT-C Alcohol total score: 0 Non-prescribed substance use: denies use Caffeine: No How often does anyone, including family, friends and others, physically hurt you : never How often does anyone, including family, friends and others, insult or talk down to you: never How often does anyone, including family, friends and others, threaten you with harm: never How often does anyone, including family, friends and others, scream or curse at you: never service: No Exam Narrative: Exam Narrative: Obese, well-developed patient in no acute distress. Answers questions appropriately. Thoughts are goal oriented and rational. No tangential or magical thinking noted. Patient speaks in full sentences without needing to catch her breath. She does seem bit confused. She is upset that she is at the hospital. She coughs on and off during the examination. HEENT: Normocephalic atraumatic. Pupils are equally round reactive to light. Extraocular muscles are intact. Conjunctivae are moist without any icterus noted. Moist mucous membranes. Posterior pharynx is normal. Neck is soft without any lymphadenopathy or thyromegaly. No masses are appreciated. Cardiovascular: Irregularly irregular, tachycardic. Lungs: Wheezing appreciated bilaterally. Abdomen: Soft and nontender nondistended with normal bowel sounds, mildly distended. Difficult to assess for organomegaly secondary to body habitus. Extremities: Bilateral lower extremities show trace to 1+ edema Skin: Well perfused without any obvious rashes. Const: Vital Signs, click to edit/add: Vital Signs - 24 hr 08/19/23 09:53 08/19/23 10:13 08/19/23 10:14 Temperature 98.1 F Pulse Rate 92 99 Pulse Rate [Pulse Oximeter] 106 H Pulse Rate [orthos tatic lying Pulse Oximeter] Pulse Rate [orthos tatic sitting Left Pulse Oximeter] Pulse Rate [orthos tatic standing Lef t Pulse Oximeter] Respiratory Rate 20 Blood Pressure 115/79 Blood Pressure [Le ft Upper Arm] 111/70 Blood Pressure [or thostatic lying] Blood Pressure [or thostatic sitting Right Arm] Blood Pressure [or thostatic standing Right Arm] Pulse Oximetry 96 95 [facility] 08/19/23 10:30 08/19/23 10:31 08/19/23 10:31 Temperature Pulse Rate 93 Pulse Rate [Pulse Oximeter] Pulse Rate [orthos tatic lying Pulse Oximeter] Pulse Rate [orthos tatic sitting Left Pulse Oximeter] Pulse Rate [orthos tatic standing Lef t Pulse Oximeter] Respiratory Rate Blood Pressure 136/90 H Blood Pressure [Le ft Upper Arm] Blood Pressure [or thostatic lying] Blood Pressure [or thostatic sitting Right Arm] Blood Pressure [or thostatic standing Right Arm] Pulse Oximetry 95 94 [facility] 08/[facility] 11:00 08/19/23 11:01 08/19/23 11:02 Temperature Pulse Rate 86 90 90 Pulse Rate [Pulse Oximeter] Pulse Rate [orthos tatic lying Pulse Oximeter] Pulse Rate [orthos tatic sitting Left Pulse Oximeter] Pulse Rate [orthos tatic standing Lef t Pulse Oximeter] Respiratory Rate Blood Pressure 144/125 H Blood Pressure [Le ft Upper Arm] Blood Pressure [or thostatic lying] Blood Pressure [or thostatic sitting Right Arm] Blood Pressure [or thostatic standing Right Arm] Pulse Oximetry 95 96 94 Oxygen Delivery Me thod 08/19/23 11:44 08/19/23 12:00 08/19/23 12:02 Temperature Pulse Rate 92 90 88 Pulse Rate [Pulse Oximeter] Pulse Rate [orthos tatic lying Pulse Oximeter] Pulse Rate [orthos tatic sitting Left Pulse Oximeter] Pulse Rate [orthos tatic standing Lef t Pulse Oximeter] Respiratory Rate Blood Pressure 123/74 Blood Pressure [Le ft Upper Arm] Blood Pressure [or thostatic lying] Blood Pressure [or thostatic sitting Right Arm] Blood Pressure [or thostatic standing Right Arm] Pulse Oximetry 90 97 97 Oxygen Delivery Me thod 08/19/23 12:02 08/19/23 12:08 08/19/23 12:11 Temperature Pulse Rate 88 Pulse Rate [Pulse Oximeter] Pulse Rate [orthos tatic lying Pulse Oximeter] Pulse Rate [orthos tatic sitting Left Pulse Oximeter] Pulse Rate [orthos tatic standing Lef t Pulse Oximeter] Respiratory Rate Blood Pressure 123/74 118/93 H 118/80 Blood Pressure [Le ft Upper Arm] Blood Pressure [or thostatic lying] Blood Pressure [or thostatic sitting Right Arm] Blood Pressure [or thostatic standing Right Arm] Pulse Oximetry 97 Oxygen Delivery Mo thod 08/19/23 12:31 08/19/23 12:34 08/19/23 12:56 Temperature Pulse Rate 103 H Pulse Rate [Pulse Oximeter] Pulse Rate [orthos tatic lying Pulse Oximeter] 98 Pulse Rate [orthos tatic sitting Left Pulse Oximeter] 104 H Pulse Rate [orthos tatic standing Lef t Pulse Oximeter] 106 H Respiratory Rate Blood Pressure 128/102 H Blood Pressure [Le ft Upper Arm] Blood Pressure [or thostatic lying] 123/74 Blood Pressure [or thostatic sitting Right Arm] 118/93 H Blood Pressure [or thostatic standing Right Arm] 118/80 Pulse Oximetry 93 Oxygen Delivery Me thod 08/19/23 13:00 08/19/23 13:01 08/19/23 13:30 Temperature Pulse Rate 102 H 99 100 Pulse Rate [Pulse Oximeter] Pulse Rate [orthos tatic lying Pulse Oximeter] Pulse Rate [orthos tatic sitting Left Pulse Oximeter] Pulse Rate [orthos tatic standing Lef t Pulse Oximeter] Respiratory Rate Blood Pressure 130/67 Blood Pressure [Le ft Upper Arm] Blood Pressure [or thostatic lying] Blood Pressure [or thostatic sitting Right Arm] Blood Pressure [or thostatic standing Right Arm] Pulse Oximetry 97 96 94 Oxygen Delivery Me thod 08/19/23 13:31 Temperature Pulse Rate 110 H Pulse Rate [Pulse Oximeter] Pulse Rate [orthos tatic lying Pulse Oximeter] Pulse Rate [orthos tatic sitting Left Pulse Oximeter] Pulse Rate [orthos tatic standing Lef t Pulse Oximeter] Respiratory Rate Blood Pressure 115/64 Blood Pressure [Le ft Upper Arm] Blood Pressure [or thostatic lying] Blood Pressure [or thostatic sitting Right Arm] Blood Pressure [or thostatic standing Right Arm] Pulse Oximetry 94 Oxygen Delivery Me thod Course Course ED Course: IV established and patient received a DuoNeb. EKG was done, read by me, showing atrial fibrillation with a pulse of 94. Labs: Normal white count and hemoglobin. Sodium slightly low at 131, chloride low at 87, carbon dioxide elevated at 39. BUN elevated at 46, normal creatinine at 1.1. Glucose 153. Normal lactate. Normal magnesium. LFTs unremarkable. CRP elevated at 3.5. Triple swab negative. BNP 1090. Chest x-ray showing Mild upper lobe pulmonary vascular diversion consistent with congestive heart failure in the correct clinical setting. Patient had no evidence of orthostatic hypotension. Wheezing did resolve with 1 treatment of DuoNebs. And her cough was also significantly better. I spoke to the patient's daughter who is quite concerned about the patient's well-being. She states that she is her mother's primary phd intern and that she has a full-time job. She sets out her medications in the morning but then has to call her multiple times during the day to make sure that she is taking her medications. She is also very concerned because she is forgetful. Daughter is concerned about the safety of her mother and of her home in her absence. In the last 2 days she has not slept at all given that the patient has been vomiting at night. Because of this we did proceed with a social work consult. Unfortunately patient did request to be discharged before I was able to have a conversation with social Work again as a consult did take several hours. I also consulted with our hospitalist, Dr. Andrade who was in agreement that there is no admitting diagnosis that requires hospitalization at this time. Unfortunately, the patient's daughter, Jazmin, is upset that the patient could not be admitted today. Vital Signs Vital signs: Initial Vital Signs Temperature 98.1 F 08/19/23 09:53 Temperature Source Temporal Artery Scan 08/19/23 09:53 Pulse Rate 106 H 08/19/23 09:53 Respiratory Rate 20 08/19/23 09:53 Blood Pressure 111/70 08/19/23 09:53 Blood Pressure Mean 83 08/19/23 09:53 Blood Pressure Position Supine 08/19/23 09:53 Pulse Oximetry 96 08/19/23 09:53 Oxygen Delivery Method Room Air 08/19/23 09:53 Vital Signs Temperature 98.1 F 08/19/23 09:53 Pulse Rate 106 H 08/19/23 09:53 Respiratory Rate 20 08/19/23 09:53 Blood Pressure 111/70 08/19/23 09:53 Pulse Oximetry 96 08/19/23 09:53 Oxygen Delivery Method Room Air 08/19/23 09:53 Temperature 98.1 F 08/19/23 09:53 Pulse Rate 110 H 08/19/23 13:31 Respiratory Rate 20 08/19/23 09:53 Blood Pressure 115/64 08/19/23 13:31 Pulse Oximetry 94 08/19/23 13:31 Oxygen Delivery Method Room Air 08/19/23 09:53 Medications Administered Medications: Discontinued Medications Generic Name Dose Route Start Last Admin Trade Name Freq PRN Reason Stop Dose Admin Albuterol/Ipratropium 1 neb 08/19/23 10:41 08/19/23 10:57 Iprat-Albut 0.5-2.5 Mg/3 Ml Neb IH 08/19/23 10:42 1 neb ONCE ONE Administration Medical Decision Making MDM Narrative Medical decision making narrative: 77-year-old female with vomiting for the last 2 days. Patient did not vomit while she was in our ER for over 5 hours. She was requesting to be discharged. Cough, improved after DuoNeb treatment. Patient currently on prednisone. Medical Records Medical records reviewed: Yes I reviewed the patient's medical records Lab Data Lab results reviewed: Yes I reviewed the patient's lab results Labs: Lab Results 08/19/23 08/19/23 08/19/23 Range/Units 10:32 10:50 10:50 WBC 10.66 (4.50-11.00) K/uL RBC 4.93 (4.00-5.20) m/uL Hgb 14.0 (12.0-16.0) gm/dL Hct 44.5 (33.0-51.0) % MCV 90 (80-100) fL MCH 28 (26-34) pg MCHC 32 (32-36) gm/dL RDW Coeff of Jessica 15.9 H (11.5-15.5) % Plt Count 240 (140-440) K/uL Neut % (Auto) 56.9 (42.0-72.0) % Lymph % (Auto) 29.7 (20-44) % [place] % (Auto) 12.4 H (0.0-11.0) % Eos % (Auto) 0.8 (0.0-7.0) % Baso % (Auto) 0.1 (0.0-3.0) % Neut # (Auto) 6.07 (1.7-7.0) K/uL Lymph # (Auto) 3.17 H (0.90-2.90) K/uL [place] # (Auto) 1.30 H (0.00-0.90) K/UL Eos # (Auto) 0.08 (0.00-0.50) K/uL Baso # (Auto) 0.01 (0.00-0.30) K/uL Abs Immat Gran (auto) 0.01 (0.00-0.30) K/uL Imm/Tot Granulo (auto) 0.1 % Sodium Cancelled 131 L Potassium Cancelled Chloride Carbon Dioxide Anion Gap BUN Creatinine Estimated Creat Clear Estimated GFR Glucose Lactate (0.5-1.9) mmol/L Calcium Magnesium (1.5-2.6) mg/dL Total Bilirubin (0.1-1.5) mg/dL Direct Bilirubin (0.0-0.5) mg/dL AST (12-35) U/L ALT (4-35) U/L Alkaline Phosphatase (40-150) U/L Troponin I (0.01-0.04) ng/mL C-Reactive Protein (0.5-1.0) mg/dL NT-Pro-B Natriuret Pep pg/mL Total Protein (6.0-8.3) g/dL Albumin (3.3-5.0) g/dL Lipase (23-300) U/L Urine Color Yellow (Yellow) Urine Appearance Clear (Clear) Urine pH 6.5 (5.0-8.5) Ur Specific [place] 1.015 (1.000-1.030) Urine Protein Negative (Negative) Urine Glucose (UA) Negative (Negative) Urine Ketones Negative (Negative) Urine Blood Trace-intact A (Negative) Urine Nitrite Negative (Negative) Urine Bilirubin Negative (Negative) Urine Urobilinogen 0.2 (0.2-1.0) Ur Leukocyte Esterase Negative (Negative) Urine RBC 0-2 (0-2) Urine WBC 0-2 (0-5) Ur Squamous Epith Cells Few (None-Few) Urine Bacteria Moderate A (None) SARS-CoV-2 (PCR) (Negative) Influenza Type A (PCR) (Negative) Influenza Type B (PCR) (Negative) RSV (PCR) (Negative) 08/19/23 08/19/23 08/19/23 Range/Units 10:50 10:50 10:50 WBC (4.50-11.00) K/uL RBC (4.00-5.20) m/uL Hgb (12.0-16.0) gm/dL Hct (33.0-51.0) % MCV (80-100) fL MCH (26-34) pg MCHC (32-36) gm/dL RDW Coeff of Jessica (11.5-15.5) % Plt Count (140-440) K/uL Neut % (Auto) (42.0-72.0) % Lymph % (Auto) (20-44) % [place] % (Auto) (0.0-11.0) % Eos % (Auto) (0.0-7.0) % Baso % (Auto) (0.0-3.0) % Neut # (Auto) (1.7-7.0) K/uL Lymph # (Auto) (0.90-2.90) K/uL [place] # (Auto) (0.00-0.90) K/UL Eos # (Auto) (0.00-0.50) K/uL Baso # (Auto) (0.00-0.30) K/uL Abs Immat Gran (auto) (0.00-0.30) K/uL Imm/Tot Granulo (auto) % Sodium Potassium 3.6 Chloride Cancelled 87 L Carbon Dioxide Cancelled 39 H Anion Gap Cancelled BUN Creatinine Estimated Creat Clear Estimated GFR Glucose Lactate (0.5-1.9) mmol/L Calcium Magnesium (1.5-2.6) mg/dL Total Bilirubin (0.1-1.5) mg/dL Direct Bilirubin (0.0-0.5) mg/dL AST (12-35) U/L ALT (4-35) U/L Alkaline Phosphatase (40-150) U/L Troponin I (0.01-0.04) ng/mL C-Reactive Protein (0.5-1.0) mg/dL NT-Pro-B Natriuret Pep pg/mL Total Protein (6.0-8.3) g/dL Albumin (3.3-5.0) g/dL Lipase (23-300) U/L Urine Color (Yellow) Urine Appearance (Clear) Urine pH (5.0-8.5) Ur Specific [place] (1.000-1.030) Urine Protein (Negative) Urine Glucose (UA) (Negative) Urine Ketones (Negative) Urine Blood (Negative) Urine Nitrite (Negative) Urine Bilirubin (Negative) Urine Urobilinogen (0.2-1.0) Ur Leukocyte Esterase (Negative) Urine RBC (0-2) Urine WBC (0-5) Ur Squamous Epith Cells (None-Few) Urine Bacteria (None) SARS-CoV-2 (PCR) (Negative) Influenza Type A (PCR) (Negative) Influenza Type B (PCR) (Negative) RSV (PCR) (Negative) 08/19/23 08/19/23 08/19/23 Range/Units 10:50 10:50 10:50 WBC (4.50-11.00) K/uL RBC (4.00-5.20) m/uL Hgb (12.0-16.0) gm/dL Hct (33.0-51.0) % MCV (80-100) fL MCH (26-34) pg MCHC (32-36) gm/dL RDW Coeff of Jessica (11.5-15.5) % Plt Count (140-440) K/uL Neut % (Auto) (42.0-72.0) % Lymph % (Auto) (20-44) % [place] % (Auto) (0.0-11.0) % Eos % (Auto) (0.0-7.0) % Baso % (Auto) (0.0-3.0) % Neut # (Auto) (1.7-7.0) K/uL Lymph # (Auto) (0.90-2.90) K/uL [place] # (Auto) (0.00-0.90) K/UL Eos # (Auto) (0.00-0.50) K/uL Baso # (Auto) (0.00-0.30) K/uL Abs Immat Gran (auto) (0.00-0.30) K/uL Imm/Tot Granulo (auto) % Sodium Potassium Chloride Carbon Dioxide Anion Gap 5 L BUN Cancelled 46 H Creatinine Cancelled 1.1 Estimated Creat Clear Cancelled Estimated GFR Glucose Lactate (0.5-1.9) mmol/L Calcium Magnesium (1.5-2.6) mg/dL Total Bilirubin (0.1-1.5) mg/dL Direct Bilirubin (0.0-0.5) mg/dL AST (12-35) U/L ALT (4-35) U/L Alkaline Phosphatase (40-150) U/L Troponin I (0.01-0.04) ng/mL C-Reactive Protein (0.5-1.0) mg/dL NT-Pro-B Natriuret Pep pg/mL Total Protein (6.0-8.3) g/dL Albumin (3.3-5.0) g/dL Lipase (23-300) U/L Urine Color (Yellow) Urine Appearance (Clear) Urine pH (5.0-8.5) Ur Specific [place] (1.000-1.030) Urine Protein (Negative) Urine Glucose (UA) (Negative) Urine Ketones (Negative) Urine Blood (Negative) Urine Nitrite (Negative) Urine Bilirubin (Negative) Urine Urobilinogen (0.2-1.0) Ur Leukocyte Esterase (Negative) Urine RBC (0-2) Urine WBC (0-5) Ur Squamous Epith Cells (None-Few) Urine Bacteria (None) SARS-CoV-2 (PCR) (Negative) Influenza Type A (PCR) (Negative) Influenza Type B (PCR) (Negative) RSV (PCR) (Negative) 08/19/23 08/19/23 08/19/23 Range/Units 10:50 10:50 10:50 WBC (4.50-11.00) K/uL RBC (4.00-5.20) m/uL Hgb (12.0-16.0) gm/dL Hct (33.0-51.0) % MCV (80-100) fL MCH (26-34) pg MCHC (32-36) gm/dL RDW Coeff of Jessica (11.5-15.5) % Plt Count (140-440) K/uL Neut % (Auto) (42.0-72.0) % Lymph % (Auto) (20-44) % [place] % (Auto) (0.0-11.0) % Eos % (Auto) (0.0-7.0) % Baso % (Auto) (0.0-3.0) % Neut # (Auto) (1.7-7.0) K/uL Lymph # (Auto) (0.90-2.90) K/uL [place] # (Auto) (0.00-0.90) K/UL Eos # (Auto) (0.00-0.50) K/uL Baso # (Auto) (0.00-0.30) K/uL Abs Immat Gran (auto) (0.00-0.30) K/uL Imm/Tot Granulo (auto) % Sodium Potassium Chloride Carbon Dioxide Anion Gap BUN Creatinine Estimated Creat Clear 76.89 Estimated GFR Cancelled 52 Glucose Cancelled 153 H Lactate 1.9 (0.5-1.9) mmol/L Calcium Cancelled Magnesium (1.5-2.6) mg/dL Total Bilirubin (0.1-1.5) mg/dL Direct Bilirubin (0.0-0.5) mg/dL AST (12-35) U/L ALT (4-35) U/L Alkaline Phosphatase (40-150) U/L Troponin I (0.01-0.04) ng/mL C-Reactive Protein (0.5-1.0) mg/dL NT-Pro-B Natriuret Pep pg/mL Total Protein (6.0-8.3) g/dL Albumin (3.3-5.0) g/dL Lipase (23-300) U/L Urine Color (Yellow) Urine Appearance (Clear) Urine pH (5.0-8.5) Ur Specific [place] (1.000-1.030) Urine Protein (Negative) Urine Glucose (UA) (Negative) Urine Ketones (Negative) Urine Blood (Negative) Urine Nitrite (Negative) Urine Bilirubin (Negative) Urine Urobilinogen (0.2-1.0) Ur Leukocyte Esterase (Negative) Urine RBC (0-2) Urine WBC (0-5) Ur Squamous Epith Cells (None-Few) Urine Bacteria (None) SARS-CoV-2 (PCR) (Negative) Influenza Type A (PCR) (Negative) Influenza Type B (PCR) (Negative) RSV (PCR) (Negative) 08/19/23 08/19/23 Range/Units 10:50 Unknown WBC (4.50-11.00) K/uL RBC (4.00-5.20) m/uL Hgb (12.0-16.0) gm/dL Hct (33.0-51.0) % MCV (80-100) fL MCH (26-34) pg MCHC (32-36) gm/dL RDW Coeff of Jessica (11.5-15.5) % Plt Count (140-440) K/uL Neut % (Auto) (42.0-72.0) % Lymph % (Auto) (20-44) % [place] % (Auto) (0.0-11.0) % Eos % (Auto) (0.0-7.0) % Baso % (Auto) (0.0-3.0) % Neut # (Auto) (1.7-7.0) K/uL Lymph # (Auto) (0.90-2.90) K/uL [place] # (Auto) (0.00-0.90) K/UL Eos # (Auto) (0.00-0.50) K/uL Baso # (Auto) (0.00-0.30) K/uL Abs Immat Gran (auto) (0.00-0.30) K/uL Imm/Tot Granulo (auto) % Sodium Potassium Chloride Carbon Dioxide Anion Gap BUN Creatinine Estimated Creat Clear Estimated GFR Glucose Lactate (0.5-1.9) mmol/L Calcium 8.9 Magnesium 2.2 (1.5-2.6) mg/dL Total Bilirubin 0.9 (0.1-1.5) mg/dL Direct Bilirubin (0.0-0.5) mg/dL AST 42 H (12-35) U/L ALT 30 (4-35) U/L Alkaline Phosphatase 69 (40-150) U/L Troponin I 0.02 (0.01-0.04) ng/mL C-Reactive Protein 3.5 H (0.5-1.0) mg/dL NT-Pro-B Natriuret Pep 1090 pg/mL Total Protein 7.4 (6.0-8.3) g/dL Albumin 3.8 (3.3-5.0) g/dL Lipase 21 L (23-300) U/L Urine Color (Yellow) Urine Appearance (Clear) Urine pH (5.0-8.5) Ur Specific [place] (1.000-1.030) Urine Protein (Negative) Urine Glucose (UA) (Negative) Urine Ketones (Negative) Urine Blood (Negative) Urine Nitrite (Negative) Urine Bilirubin (Negative) Urine Urobilinogen (0.2-1.0) Ur Leukocyte Esterase (Negative) Urine RBC (0-2) Urine WBC (0-5) Ur Squamous Epith Cells (None-Few) Urine Bacteria (None) SARS-CoV-2 (PCR) Negative SARS-CoV-2 (Negative) Influenza Type A (PCR) Negative PCR FLU A (Negative) Influenza Type B (PCR) Negative PCR FLU B (Negative) RSV (PCR) Negative PCR RSV (Negative) Imaging Data Chest x-ray: Attestation: I have reviewed the pertinent imaging results. Radiologist's impression: TECHNIQUE: 1 view. FINDINGS: Medical Devices: None. Lung Volumes: Adequate inspiration. No significant atelectasis. Lungs: Mild upper lobe pulmonary vascular diversion consistent with congestive heart failure in the correct clinical setting. Otherwise clear lungs. Pleura and Pleural spaces: No significant pleural effusion. No pneumothorax. Mediastinum: Unremarkable for AP technique, unchanged. Bony Thorax and Soft Tissues: No significant incidental findings. IMPRESSION: Mild upper lobe pulmonary vascular diversion consistent with congestive heart failure in the correct clinical setting. Otherwise clear lungs. ECG Data Attestation: I personally reviewed and interpreted this ECG as follows: Discharge Plan Discharge Clinical Impression: Cough, Hyponatremia, Vomiting Patient Disposition: Home w/ Parent or Adult Condition: Stable Additional Instructions: Patient's workup was unremarkable for any illness requiring hospitalization. Patient does seem to have cold symptoms with a cough that has irritated her lungs. If the vomiting has caused her sodium levels to be slightly low, this should normalize with a healthy diet and resolution of her vomiting. I will send her home today with nausea pills to take as needed. Recommend follow-up with your primary care provider in about 1 week. Prescriptions: No Action atorvastatin 10 mg tablet 10 mg PO DAILY allopurinol 300 mg tablet 450 mg PO DAILY furosemide 20 mg tablet 20 mg PO DAILY Eliquis 5 mg tablet 5 mg PO BID sulfasalazine 500 mg tablet 1 g PO Q12H Rx Instructions: give with food (meal/snack) metoprolol tartrate [Lopressor] 50 mg tablet 50 mg PO BID amlodipine 5 mg tablet 5 mg PO DAILY prednisone 20 mg Tablet 20 mg PO DAILYWM 14 Days Qty: 14 1RF Rx Instructions: Stress dosing needed in case of crisis. ondansetron 4 mg tablet,disintegrating PO escitalopram oxalate 5 mg tablet 5 mg PO DAILY Vitamin D3 Follow Up/Referrals: BETSY RAHMAN [Primary Care Provider] - Stand Alone Forms: [employer] Info Instructions
[2023-08-19 10:57] LABS: Lactate* 1.9 mmol/L (0.5-1.9)
[2023-08-19] MEDS: IPRAT-ALBUT 0.5-2.5 MG/3 ML NEB 1 NEB IH (10:57)
[2023-08-19 10:59] LABS: Basophils Absolute Auto 0.01 K/uL (0.00-0.30); Basophils Percent Auto 0.1 % (0.0-3.0); Eosinophils Absolute Auto 0.08 K/uL (0.00-0.50); Eosinophils Percent Auto 0.8 % (0.0-7.0); Hematocrit 44.5 % (33.0-51.0); Immature Granulocytes Abs Auto 0.01 K/uL (0.00-0.30); Immature Granulocytes Pct Auto 0.1 %; Lymphocytes Absolute Auto 3.17 K/uL (0.90-2.90); Lymphocytes Percent Auto 29.7 % (20-44); Mean Corpuscular HGB Conc 32 gm/dL (32-36); Mean Corpuscular Hemoglobin 28 pg (26-34); Mean Corpuscular Volume 90 fL (80-100); Monocytes Percent Auto 12.4 % (0.0-11.0); Neutrophils Absolute Auto 6.07 K/uL (1.7-7.0); Neutrophils Percent Auto 56.9 % (42.0-72.0); Platelet Count* 240 K/uL (140-440); RDW Coefficient of Variation % 15.9 % (11.5-15.5); Red Blood Count 4.93 m/uL (4.00-5.20); White Blood Count* 10.66 K/uL (4.50-11.00)
[2023-08-19 11:09] LABS: Slide Review Reflex No
[2023-08-19 11:20] LABS: Albumin* 3.8 g/dL (3.3-5.0); Chloride* 87 mmol/L (96-114); Sodium* 131 mmol/L (135-149)
[2023-08-19 11:21] LABS: Potassium* 3.6 mmol/L (3.6-5.1)
[2023-08-19 11:22] LABS: Creatinine* 1.1 mg/dL (0.5-1.5); Est. Creatinine Clearance* 76.89; Estimated Glomerular Filt Rate 52 ml/min
[2023-08-19 11:23] LABS: Alkaline Phosphatase* 69 U/L (40-150); Anion Gap 5 mEq/L (7-15); Aspartate Amino Transferase* 42 U/L (12-35); Bilirubin Total* 0.9 mg/dL (0.1-1.5); Blood Urea Nitrogen* 46 mg/dL (7-30); Carbon Dioxide* 39 mmol/L (20-32); Lipase* 21 U/L (23-300); Total Protein* 7.4 g/dL (6.0-8.3)
[2023-08-19 11:24] LABS: Alanine Aminotransferase* 30 U/L (4-35); Calcium* 8.9 mg/dL (8.4-10.6); Glucose* 153 mg/dL (60-115); Magnesium* 2.2 mg/dL (1.5-2.6)
[2023-08-19 11:26] LABS: C Reactive Protein* 3.5 mg/dL (0.5-1.0)
[2023-08-19 11:35] LABS: Troponin I* 0.02 ng/mL (0.01-0.04)
[2023-08-19 11:36] LABS: NT Pro B Type NatriureticPept* 1090 pg/mL
[2023-08-19 11:44] LABS: PCR FLU A Negative PCR FLU A (Negative); PCR FLU B Negative PCR FLU B (Negative); PCR RSV Negative PCR RSV (Negative); SARS PCR* Negative SARS-CoV-2 (Negative)
[2023-08-19 11:46] LABS: Appearance Urine Clear (Clear); Bilirubin Urine Negative (Negative); Blood Urine Trace-intact (Negative); Color Urine Yellow (Yellow); Glucose Urine Negative (Negative); Ketones Urine Negative (Negative); Leukocyte Esterase Urine Negative (Negative); Nitrite Urine Negative (Negative); Protein Urine Negative (Negative); Specific Gravity Urine 1.015 (1.000-1.030); Urobilinogen Urine 0.2 (0.2-1.0); pH Urine 6.5 (5.0-8.5)
[2023-08-19 12:16] LABS: RBC Urine 0-2 (0-2); Squamous Epithelial Cell Urine Few (None-Few); WBC Urine 0-2 (0-5)
[2023-08-19 12:17] LABS: Bacteria Urine Moderate
--- NOTE | 2023-08-19 15:28 | PC.SOCIAL ---
Addendum entered by Rosalind Blas MANAGER [employer]EARCH 08/19/23 16:58: Received call back from Criselda at [facility] stating they will not be able to complete the evaluation for admit today, but will complete it Tuesday. Pt and dtr had left the Emergency Room prior to psychotherapist social worker receiving that information. Criselda to follow up with dtr and pt at home on Tuesday with decision on admit and if accepted, can coordinate and admission from home. Original Note: Discharge planning: wireworker sent a placement referral to [facility] on behalf of the pt and at the family's request. Pt's family is hoping for the pt to get a short-term rehab stay. Criselda at [facility] received the paperwork and sent it to nursing for review. Criselda was unsure if nursing would be able to review the referral today or if it would have to wait until Tuesday. Pt's family was informed of this update. Social work to follow-up as needed.
== END 2023-08-19 15:03 | disposition home or self-care (01) ==
PROVIDERS: Emergency Provider Family Medicine; PCP Family Medicine
DX: R05.9 Cough, unspecified (principal); E87.1 Hypo-osmolality and hyponatremia; R11.10 Vomiting, unspecified
CPT/HCPCS: 36415; 71045; 80048; 80076; 81001; 83605; 83690; 83735; 83880; 84484; 85025; 86140; 87086; 87631; 93005; 94640; 94761; 99284; 99285